=== PATIENT | female | born 1975 | race Hispanic/Latino ===

== ENCOUNTER 2019-08-05 08:16 | Outpatient (CLI) | payer OTHER ==
--- NOTE | 2019-08-05 09:08 | ULT ---
EXAM: Abdominal ultrasound complete: HISTORY: Hep C COMPARISON: None FINDINGS: The liver appears unremarkable. The gallbladder demonstrates no evidence for gallstones, wall thickening, or pericholecystic fluid. The common bile duct is Within normal limits. Visualized pancreas: Unremarkable. Visualized abdominal aorta: Unremarkable. Visualized IVC: Unremarkable. Visualized spleen: Minimally enlarged at 15 cm Visualized kidneys: No evidence for hydronephrosis or solid or cystic mass. No mass, abscess, adenopathy, or abnormal fluid collection or other acute process. IMPRESSION: Evidence for splenomegaly.
== END 2019-08-05 08:17 | disposition home or self-care (01) ==
LOC: BICULT 08:16
PROVIDERS: ATTEND Family Medicine
DX: B18.2 Chronic viral hepatitis C (principal); R16.1 Splenomegaly, not elsewhere classified
CPT/HCPCS: 93975